=== PATIENT | female | born 1965 | race Caucasian/White ===

== ENCOUNTER 2022-03-01 06:34 | Day surgery (SDC) | payer OTHER, SELFPAY ==
[2022-03-01 06:50] VITALS: BP 92/49; PULSE 57; RESP 16; TEMP 37.3
[2022-03-01 06:52] VITALS: BMI 26.6
[2022-03-01] MEDS: ETHYL CHLORIDE 116 ML SPRAY 1 APPLIC TOPICAL (07:05)
[2022-03-01] MEDS: BUPIVACAINE 0.5% 30 ML INJECTION (07:05)
[2022-03-01 07:20] VITALS: BP 125/68; PULSE 54; RESP 16; O2SAT 98
[2022-03-01 07:44] VITALS: BP 120/63; PULSE 52; RESP 16; O2SAT 100
[2022-03-01 07:46] VITALS: BP 115/63; PULSE 51; RESP 16; O2SAT 97
[2022-03-01 07:49] VITALS: BP 112/62; PULSE 58; RESP 16; O2SAT 97
[2022-03-01 08:04] VITALS: BP 119/88; PULSE 58; RESP 16
--- NOTE | 2022-03-01 13:03 | P.ORPRC_ITS ---
Procedure Note Procedure: PREOPERATIVE DIAGNOSIS: 1. Right ring finger flexor tenosynovitis - trigger finger POSTOPERATIVE DIAGNOSIS: 1. Right ring finger flexor tenosynovitis - trigger finger PROCEDURE: 1. Right ring finger flexor tendon sheath open release (A1 tamara) SURGEON: Emanuel Preston MD. ROUTE RETURNER: ABNER Mcknight ANESTHESIA: Local anesthetic 4 mL via 50:50 mixture of 2% lidocaine with epi and 0.5% marcaine plain EBL: 2mL IMPLANTS: None TOURNIQUET: None COMPLICATIONS: None evident INDICATIONS: The patient is a pleasant 56-year-old female who has experienced right ring finger catching/triggering for number of months. It has progressively gotten worse. Given the failure of nonoperative management, and how this affects daily life, surgery was recommended. DESCRIPTION OF PROCEDURE: Following a thorough discussion of risks, benefits, and alternatives consent was obtained and the operative digit(s) was marked. The patient was brought to the operating room and placed supine on the operating table. Local anesthesia induction was undertaken in preop holding. No antibiotics were administered as this was planned to be a local case only. Proper time-out was performed identifying proper patient, site, and procedure. The operative extremity was prepped and draped in the appropriate sterile fashion using ChloraPrep. A incision was made on the palmar surface of the hand overlying the MCP joint region of the appropriate digit(s) respecting the palmar creases being cautious not to cross these perpendicularly. Sharp incision through the skin, and blunt dissection through subcutaneous tissue allowing protection of crossing neurologic structures. The A1 tamara was visualized directly. It was incised sharply with a 15 blade. It was released completely from its distal to proximal extent under direct visualization. The tendon was inspected and found to be mildly striated consistent with some friction. Otherwise, it was intact. The tendon was removed out of the wound, and further inspected. The patient was asked to manually flex and extend the digits and showed no further catching. The catching, which was visualized initially, was no longer evident with reproduction of a manual fist and relaxation. Closure was performed with 4-O nylon in interrupted fashion. Soft dressings were applied, and the patient was transferred to the recovery room in stable condition. PLAN: 1. Encourage elevation of the operative extremity. 2. Range of motion of the fingers and hand/wrist as tolerated. 3. Ibuprofen/acetaminophen and/or Percocet as needed for pain control. 4. Follow up with PA visit in 12-16 days for wound check and suture removal.
== END 2022-03-01 08:27 | disposition home or self-care (01) ==
PROVIDERS: PCP Physician Assistant Medical; Visit Provider Orthopaedic Surgery Sports Medicine
PROC: (CPT 26055; principal; 2022-03-01 07:30)
DX: M65.341 Trigger finger, right ring finger (principal); M65.841 Other synovitis and tenosynovitis, right hand
CPT/HCPCS: 26055; J3490

== ENCOUNTER 2023-11-28 10:52 | Outpatient (CLI) | payer OTHER, SELFPAY | END 2023-11-28 10:53 | disposition home or self-care (01) | PROVIDERS: PCP Physician Assistant Medical; Visit Provider Physician Assistant Medical | DX: Z00.00 Encounter for general adult medical examination without abnormal findings (principal); Z13.0 Encounter for screening for diseases of the blood and blood-forming organs and certain disorders involving the immune mechanism; Z13.6 Encounter for screening for cardiovascular disorders; Z13.1 Encounter for screening for diabetes mellitus; Z11.3 Encounter for screening for infections with a predominantly sexual mode of transmission; Z11.59 Encounter for screening for other viral diseases | CPT/HCPCS: 80053; 80061; 86703; 86803 ==

== ENCOUNTER 2025-08-14 12:10 | Outpatient (CLI) | payer OTHER, SELFPAY | END 2025-08-14 12:11 | disposition home or self-care (01) | LOC: NFLDREF 08-19 09:44 | PROVIDERS: PCP Physician Assistant Medical; Referring Provider Physician Assistant Medical; Visit Provider Physician Assistant Medical | DX: Z00.00 Encounter for general adult medical examination without abnormal findings (principal); F32.A Depression, unspecified; F41.9 Anxiety disorder, unspecified | CPT/HCPCS: 80053; 80061 ==